=== PATIENT | male | born 1950 | race Caucasian/White ===

== ENCOUNTER 2017-04-21 19:45 | Emergency (ER) | payer OTHER ==
[~2017-04-21] VITALS: Ht 175.3 cm; Wt 137.4 kg
[~2017-04-21 19:45] MED LIST: ALEVE220 MG PO; ASPIR-TRIN325 M1 PO; ASPIRIN325 MG PO; Airborne PO; CELEBREX200 MG PO; CELECOXIB200 MG PO; COUMADIN5 MG PO; DIOVAN160 MG PO; DOCUSATE SODIU100 MG PO; ENDOCET 5-3251 EACH PO; Ecotrin PO; FEOSOL325 MG PO; Feosol PO; HYDROCODON-ACE1 EAC7 PO; MECLIZINE HCL25 MG PO; OxyCONTIN PO; SENOKOT S,PE1 TABLET PO; Senokot S,Pericolace PO; TUMS500 MG PO; Tums,OsCal PO; Vicodin,Lortab 5/500 PO; Vicodin,Norco 5/325 PO; ZESTRIL5 MG PO; Zestril,Prinivil PO; Zicam PO; celeBREX PO
[2017-04-22] MEDS ORDERED: PERCOCET 5/31 TABLET PO (01:17)
[2017-04-22] MEDS ORDERED: NAPROSYN500 MG PO (01:17)
[2017-04-22 01:28] VITALS: BP 140/88
== END 2017-04-22 01:29 | disposition home or self-care (01) ==
LOC: EME 19:45 → RME 19:45
DX: S46.011A Strain of muscle(s) and tendon(s) of the rotator cuff of right shoulder, initial encounter (principal); M25.562 Pain in left knee; W01.0XXA Fall on same level from slipping, tripping and stumbling without subsequent striking against object, initial encounter; Y92.008 Other place in unspecified non-institutional (private) residence as the place of occurrence of the external cause; Y93.01 Activity, walking, marching and hiking; J32.0 Chronic maxillary sinusitis; M47.892 Other spondylosis, cervical region; I65.29 Occlusion and stenosis of unspecified carotid artery; Z85.828 Personal history of other malignant neoplasm of skin
CPT/HCPCS: 70450; 70486; 72125; 73030; 73564; 99281; 99284; J2270